=== PATIENT | male | born 1990 | race Caucasian/White ===

== ENCOUNTER 2023-10-16 18:25 | Emergency (ER) | payer BC, SELFPAY ==
[2023-10-16 18:25] VITALS: BP 177/93; PULSE 100; RESP 16; TEMP 37; O2SAT 97
--- NOTE | 2023-10-16 18:47 | ED.WOUNDLAC ---
HPI - Wound/Laceration General Chief Complaint: Wound/Laceration Stated Complaint: Laceration to Right Hand Time Seen by Provider: 10/16/23 18:35 Source: patient and RN notes reviewed Mode of arrival: ambulatory Limitations: no limitations History of Present Illness HPI narrative: Patient presents today with lacerations to the fingers of his right hand that were sustained just prior to arrival on a, ?big knife? at his home. Currently rates his pain 8/10. He rinsed the hand under water at home before wrapping and driving himself to [facility]. Related Data Home Medications Medication Instructions Recorded Confirmed No Home Medications 10/16/23 10/16/23 Allergies Allergy/AdvReac Type Severity Reaction Status Date / Time No Known Allergies Allergy Verified 10/16/23 18:41 Review of Systems Review of Systems: CONSTITUTIONAL: Denies body aches, fever, chills, or sweats. EYES: Denies visual changes, redness, or discharge. ENT: Denies rhinorrhea, congestion, sore throat, or otalgia. CARDIOVASCULAR: Denies chest pain, palpitations, or edema. RESPIRATORY: Denies cough or dyspnea. GASTROINTESTINAL: Denies abdominal pain, nausea, vomiting, or diarrhea. GENITOURINARY: Denies dysuria or hematuria. SKIN: Denies rash, itching. +Finger lacerations NEUROLOGIC: Denies headache, numbness, tingling, or weakness. PSYCH: Denies depression or anxiety. PMFSH Comments At time of signature, I have reviewed and agree with nursing past medical, surgical, social and family history unless otherwise noted. Please see nursing chart for further information. There is no relevant family history pertinent to the presenting complaint Exam Narrative: GENERAL: Well-appearing, well-nourished, and in no acute distress. HEAD: Normocephalic, atraumatic. EYES: EOMI. No redness or drainage. Conjunctivae normal. ENT: Mucous membranes pink and moist. NECK: Normal AROM. CHEST: No respiratory distress. EXTREMITIES: Right hand: Large full-thickness lacerations to the proximal phalanx, palmar aspect, of fingers 2 3 and 4 and a more superficial laceration to the distal phalanx of the pad of finger 1. Patient is able to move fingers 1, 4, and 5, and has little movement in fingers 2 and 3 with decreased sensation. Finger 3 has some arterial bleeding as well. SKIN: Warm, dry, no rash. Capillary refill normal. Normal skin turgor. NEURO: No focal deficits. Alert and oriented x3. Gait steady. PSYCH: Normal affect. No signs of depression or anxiety. Course Course Level of Care: Express Care Visit Vital Signs Vital signs: Vital Signs Temperature 98.6 F 10/16/23 18:25 Pulse Rate 100 10/16/23 18:25 Respiratory Rate 16 10/16/23 18:25 Blood Pressure 177/93 H 10/16/23 18:25 Pulse Oximetry 97 10/16/23 18:25 Oxygen Delivery Room Air 10/16/23 18:25 Temperature 98.6 F 10/16/23 18:25 Pulse Rate 100 10/16/23 18:25 Respiratory Rate 16 10/16/23 18:25 Blood Pressure 177/93 H 10/16/23 18:25 Pulse Oximetry 97 10/16/23 18:25 Oxygen Delivery Room Air 10/16/23 18:25 Blood pressure 177/93, pulse 100, respirations 16, temp 98.6?, pulse ox 97 on room air. Reviewed. Transfer Transfered to: [facility] Transportation: ALS Transfer rationale: Severe finger lacerations with likely tendon lacerations Accepting physician: Felix Carlos comments: Report given to CHIDI Horn MDM - Wound/Laceration MDM Narrative Medical decision making narrative: Patient will be transferred to the ER for further evaluation and repair. Differential Diagnosis Differential diagnosis: Likely laceration, avulsion of skin and other (tendon laceration) Critical Care Time Critical Care Time Critical Care Time: No Discharge Plan Discharge Clinical Impression: Laceration of right hand Qualifiers: Encounter type: initial encounter Foreign body presence: without foreign body Qualified Code(s): S61.411A - Laceration w
--- NOTE | 2023-10-16 19:07 | PC.NURSE ---
Patient took directly to room 1 on arrival. Had towel wrapped on hand on arrival. drove self. Towel removed and 4 lacerations to palmar side of right hand present. Arterial bleed present. Pressure applied immediately. [employer] in to see wound. Pressure dressing consisting of saline guaze and coban applied to hand. Wound elevated and bleeding controlled.
== END 2023-10-16 19:12 | disposition short-term general hospital (02) ==
PROVIDERS: Emergency Provider Nurse Practitioner
DX: S61.011A Laceration without foreign body of right thumb without damage to nail, initial encounter (principal); S61.210A Laceration without foreign body of right index finger without damage to nail, initial encounter; S61.212A Laceration without foreign body of right middle finger without damage to nail, initial encounter; S61.214A Laceration without foreign body of right ring finger without damage to nail, initial encounter; W26.0XXA Contact with knife, initial encounter
CPT/HCPCS: 99214; G0463